=== PATIENT | male | born 1940 | race Hispanic/Latino ===

== ENCOUNTER 2017-03-19 10:01 | Day surgery (SDC) | payer MEDICARE, OTHER ==
[2017-03-11 12:45] VITALS: BMI 35.9
[2017-03-19] MEDS ORDERED: Propofol 10 mg/ml Inj (20 ML) ONE (12:12)
[2017-03-19] MEDS ORDERED: Lidocaine 1% Inj (20ml) ONE ×2 (12:12→12:33)
[2017-03-19] MEDS ORDERED: Sodium Chloride 0.9% 1,000 ML IV SCH (13:00)
[2017-03-19 14:10] VITALS: BP 152/59; PULSE 65; RESP 18; TEMP 97.9; O2SAT 96
== END 2017-03-19 14:47 | disposition home or self-care (01) ==
LOC: ENDO 10:01
PROVIDERS: ATTEND Internal Medicine Gastroenterology
DX: K31.7 Polyp of stomach and duodenum (principal); K25.9 Gastric ulcer, unspecified as acute or chronic, without hemorrhage or perforation; K44.9 Diaphragmatic hernia without obstruction or gangrene; Z80.0 Family history of malignant neoplasm of digestive organs; I10 Essential (primary) hypertension; E11.9 Type 2 diabetes mellitus without complications; Z79.84 Long term (current) use of oral hypoglycemic drugs
CPT/HCPCS: 43239; 82948; 88305; 88342; J2704; J7040 ×2

== ENCOUNTER 2017-07-02 07:23 | Day surgery (SDC) | payer MEDICARE, OTHER ==
[2017-03-11 12:45] VITALS: BMI 35.9
[2017-07-02] MEDS ORDERED: Propofol 10 mg/ml Inj (20 ML) ONE (09:25)
[2017-07-02] MEDS ORDERED: Sodium Chloride 0.9% 1,000 ML IV SCH (09:30)
[2017-07-02 13:22] VITALS: BP 138/70; PULSE 70; RESP 20; TEMP 98.5
[2017-07-02 13:23] VITALS: O2SAT 95
--- NOTE | 2017-07-02 16:17 | CARD ---
APPROVED REPORT EKG Measurement Heart [id number] SD [id number] <Conclusion> Sinus rhythm with premature atrial complexes Right bundle branch block Left anterior fascicular block Bifascicular block Moderate voltage criteria for LVH, may be normal variant Abnormal ECG
== END 2017-07-02 13:21 | disposition home or self-care (01) ==
LOC: ENDO 07:23
PROVIDERS: ATTEND Internal Medicine Gastroenterology
DX: K29.50 Unspecified chronic gastritis without bleeding (principal); K25.7 Chronic gastric ulcer without hemorrhage or perforation; I10 Essential (primary) hypertension; E11.9 Type 2 diabetes mellitus without complications; E78.5 Hyperlipidemia, unspecified
CPT/HCPCS: 43239; 82948; 88305; 88342; 93005; J2704; J7040 ×2

== ENCOUNTER 2018-04-22 09:48 | Emergency (ER) | payer MEDICARE, OTHER ==
[2018-04-22 09:56] VITALS: BMI 33.7
--- NOTE | 2018-04-22 10:10 | ED PDOC ---
Arrival/HPI - General Chief Complaint: Medical Clearance Time Seen by Provider: 04/22/18 09:54 Historian: Patient, Spouse - History of Present Illness Narrative History of Present Illness (Text): 77 y/o M w/ h/o prostate cancer presents to the emergency department accompanied by his for cardiac evaluation. The patient was noted to undergo endoscopy and was noted to have several pauses in heart beats on his monitor strip. The procedure was halted and the patient was sent to ER for medical clearance. Patient denies any fever, chills, shortness of breath, chest pain, diarrhea, nausea, vomiting, urinary symptoms, back pain, neck pain, headache, dizziness, or any other complaints. Patternmaker: Dr. Wilson([facility]) Time/Duration: Prior to Arrival Symptom Onset: Gradual Symptom Course: Unchanged Context: Home Past Medical History - Provider Review Nursing Documentation Reviewed: Yes - Travel History Have you recently traveled outside [place] w/in the past 3 mons?: No - Infectious Disease Hx of Infectious Diseases: None - Cardiac Hx Hypertension: Yes - Neurological Hx Paralysis: No - Endocrine/Metabolic Hx Diabetes Mellitus Type 2: Yes - Hematological/Oncological Hx Blood Transfusions: No - Musculoskeletal/Rheumatological Hx Musculoskeletal Disorders: No - Gastrointestinal Other/Comment: intestinal metaplasis - Genitourinary/Gynecological Hx Prostate Cancer: Yes - Psychiatric Hx Substance Use: No - Surgical History Other/Comment: colon resection - Anesthesia Hx Anesthesia Reactions: No Hx Malignant Hyperthermia: No - Suicidal Assessment Feels Threatened In Home Enviroment: No Family/Social History - Physician Review Nursing Documentation Reviewed: Yes Family/Social History: Unknown Family HX Smoking Status: Never Smoked Hx Alcohol Use: No Hx Substance Use: No Allergies/Home Meds Allergies/Adverse Reactions: Allergies ETOH Allergy (Severe, Uncoded 04/22/18 09:56) FACE BECOMES VERY RED/ ITCHY/SWOLLEN ALLERGY CONFIRMED 03/11/17 Home Medications: Home Meds Medication Instructions Recorded Confirmed Fenofibrate [Tricor] 145 mg PO QAM 06/14/12 04/22/18 Levothyroxine Sodium 50 mcg PO DAILY 06/14/12 04/22/18 [Levothyroxine] Ramipril 5 mg PO QAM 06/14/12 04/22/18 Verapamil [Verapamil HCl] 240 mg PO QAM 06/14/12 04/22/18 Glipizide [Glipizide ER] 5 mg PO DAILY 03/11/17 04/22/18 MetFORMIN [glucOPHAGE] 1,000 mg PO BID 03/11/17 04/22/18 Atorvastatin [Lipitor] 20 mg PO DAILY 06/23/17 04/22/18 Review of Systems - Physician Review All systems were reviewed & negative as marked: Yes - Review of Systems Constitutional: absent: Fevers, Night Sweats Respiratory: absent: SOB Cardiovascular: absent: Chest Pain Gastrointestinal: absent: Diarrhea, Nausea, Vomiting Genitourinary Male: absent: Urinary Output Changes Musculoskeletal: absent: Back Pain, Neck Pain Neurological: absent: Headache, Dizziness Physical Exam Vital Signs Reviewed: Yes Vital Signs Temp Pulse Resp BP Pulse Ox 04/22/18 09:49 99.1 F 67 16 144/77 96 Temperature: Afebrile Blood Pressure: Normal Pulse: Regular Respiratory Rate: Normal Appearance: Positive for: Well-Appearing, Non-Toxic, Comfortable Pain Distress: None Mental Status: Positive for: Alert and Oriented X 3 - Systems Exam Head: Present: Atraumatic, Normocephalic Pupils: Present: PERRL Extroacular Muscles: Present: EOMI Conjunctiva: Present: Normal Mouth: Present: Moist Mucous Membranes Neck: Present: Normal Range of Motion Respiratory/Chest: Present: Clear to Auscultation, Good Air Exchange. No: Respiratory Distress, Accessory Muscle Use, Wheezes, Rales, Rhonchi Cardiovascular: Present: Regular Rate and Rhythm, Normal S1, S2. No: Murmurs Abdomen: Present: Distention, Other (+obese). No: Tenderness, Peritoneal Signs, Rebound, Guarding, McBurney's Point Tender, Rovsing's Sign Present, Hernias, Feeding Tubes, Ostomy Tubes, Mass/Organomegaly, Scars Back: Present: Normal Inspection Upper Extremity: Present: Normal Inspection. No: Cyanosis, Edema Lower Extremity: Present: Normal Inspection. No: Edema Neurological: Present: GCS=15, CN II-XII Intact, Speech Normal Skin: Present: Warm, Dry, Normal Color. No: Rashes Psychiatric: Present: Alert, Oriented x 3, Normal Insight, Normal Concentration Medical Decision Making ED Course and Treatment: 04/22/18 10:10 Impression: 77 year old male presenting to the emergency department for cardiac evaluation. Differential Diagnosis included but are not limited to: - Arrhythmia (heart block) -Valvular dysfunction Plan: -- CMP -- Magnesium -- Troponin -- CBC -- CXR -- Reassess and disposition Prior Visits: Note and results from previous visits were reviewed. Progress Notes: 04/22/18 10:10 Patient currently asymptomatic at this time. Labs reviewed with no outstanding findings. CXR shows no acute intrathoracic pathology. Pending troponin results. 04/22/18 11:08 Troponin negative. Patient reassessed and noted to be asymptomatic. Patient's updated. Will attempt to communicate findings with endoscopy suite prior to transfer of patient. Call placed and spoke to endoscopy medical unit secretary. Discussed findings with GI fellow at the bedside who will communicate plan with Dr. Meng(GI). He will call patient's manager corporate strategy to relay updated information regarding patient's cardiac profile. Patient will be transferred back to endoscopy suite. - EKG Interpretation EKG Interpretation (Text): 04/22/18 10:10 EKG: Ordered, reviewed, and independently interpreted the EKG. Rate : 65 BPM Rhythm : NSR Interpretation : PACs, Right bundle branch block, no T-wave inversions, slight prolongation. Interpreted by ED Physician: Yes - Scribe Statement The provider has reviewed the documentation as recorded by the Dion Pham All medical record entries made by the Maryamibe were at my direction and personally dictated by me. I have reviewed the chart and agree that the record accurately reflects my personal performance of the history, physical exam, medical decision making, and the department course for this patient. I have also personally directed, reviewed, and agree with the discharge instructions and disposition. Disposition/Present on Arrival - Present on Arrival Any Indicators Present on Arrival: No History of DVT/PE: No History of Uncontrolled Diabetes: No Urinary Catheter: No History of Decub. Ulcer: No History Surgical Site Infection Following: None - Disposition Have Diagnosis and Disposition been Completed?: Yes Diagnosis: Arrhythmia Disposition: HOME/ ROUTINE Disposition Time: 11:11 Patient Plan: Transfer To (Endoscopy suite) Condition: FAIR Discharge Instructions (ExitCare): Arrhythmias Referrals: Brian Wilson MD [Medical Doctor] - Follow up with primary Forms: [employer] ([place])
[2018-04-22 10:38] LABS: BASO # 0.02 K/mm3 (0.0-2.0); BASO % 0.6 % (0.0-3.0); EOS # 0.2 (0.0-0.7); EOS % 4.7 % (1.5-5.0); GRAN # 2.25 (1.4-6.5); GRAN % 62.5 % (50.0-68.0); HEMOGLOBIN 11.6 g/dL (14.0-18.0); LYMPH # 0.9 (1.2-3.4); LYMPH % 25.3 % (22.0-35.0); MEAN CELL VOLUME 91.8 fl (80.0-105.0); MEAN CORPUSCULAR HEMOGLOBIN 29.6 pg (25.0-35.0); MEAN CORPUSCULAR HGB CONC 32.2 g/dl (31.0-37.0); MEAN PLATELET VOLUME 11.7 fl (7.0-11.0); MONO # 0.3 (0.1-0.6); MONO % 6.9 % (1.0-6.0); RBC 3.92 10^6/uL (3.5-6.1); RED CELL DISTRIBUTION WIDTH 14.2 % (11.5-14.5); WHITE BLOOD COUNT 3.6 10^3/ul (4.5-11.0)
[2018-04-22 10:46] LABS: ALB/GLOB RATIO 1.2 (1.1-1.8); ALBUMIN 4.1 g/dL (3.0-4.8); ALT/SGPT 33 U/L (7-56); AST/SGOT 38 U/L (17-59); BLOOD UREA NITROGEN 18 mg/dL (7-21); CALCIUM 9.7 mg/dL (8.4-10.5); GFR NON-AFRICAN AMERICAN > 60
[2018-04-22 10:57] LABS: TROPONIN I < 0.01 ng/mL
[2018-04-22 11:33] VITALS: BP 142/74; PULSE 65; RESP 20; TEMP 98.8; O2SAT 97
--- NOTE | 2018-04-22 11:40 | RAD ---
Date of service: 04/22/2018 HISTORY: abnormal EKG COMPARISON: Chest radiographs 10/19/2016. FINDINGS: LUNGS: No active pulmonary disease. PLEURA: No significant pleural effusion identified, no pneumothorax apparent. CARDIOVASCULAR: Stable cardiomegaly. No pulmonary vascular congestion. OSSEOUS STRUCTURES: No significant abnormalities. VISUALIZED UPPER ABDOMEN: Stable right hemidiaphragm elevation. OTHER FINDINGS: None. IMPRESSION: No interval acute cardiopulmonary disease appreciated. Right hemidiaphragm elevation again evident as well as cardiomegaly without pulmonary vascular congestion.
== END 2018-04-22 11:32 | disposition home or self-care (01) ==
LOC: ED 09:48
DX: I49.9 Cardiac arrhythmia, unspecified (principal); I10 Essential (primary) hypertension; E11.9 Type 2 diabetes mellitus without complications; Z85.46 Personal history of malignant neoplasm of prostate

== ENCOUNTER → 2018-04-22 | Day surgery (SDC) | payer MEDICARE, OTHER ==
[2018-04-19 10:58] VITALS: BMI 34.4
[~2018-04-22] MED LIST: Etomidate 20 mg/10ml Inj IV ONE; Propofol 10 mg/ml Inj (20 ML) ONE
[2018-04-22 07:53] VITALS: BP 131/96; PULSE 73; RESP 20; TEMP 98.1; O2SAT 95
--- NOTE | 2018-04-23 08:51 | CARD ---
APPROVED REPORT Date of service: 04/22/2018 EKG Measurement Heart [id number] ID [id number] <Conclusion> Sinus rhythm with premature atrial complexes Right bundle branch block PRWP Possible abn. limb lead placement. Suggest repeat.
== END | disposition short-term general hospital (02) ==
LOC: ENDO 07:23
PROVIDERS: ATTEND Internal Medicine Gastroenterology
DX: Z08 Encounter for follow-up examination after completed treatment for malignant neoplasm (principal); Z85.038 Personal history of other malignant neoplasm of large intestine; I45.5 Other specified heart block; I45.10 Unspecified right bundle-branch block; I49.1 Atrial premature depolarization; Z53.09 Procedure and treatment not carried out because of other contraindication; I10 Essential (primary) hypertension; E11.9 Type 2 diabetes mellitus without complications; E78.5 Hyperlipidemia, unspecified; Z79.84 Long term (current) use of oral hypoglycemic drugs
CPT/HCPCS: 82948; 93005; J2001; J2704; J3010